=== PATIENT | male | born 1955 | race Caucasian/White ===

== ENCOUNTER 2016-11-30 13:52 | Outpatient (CLI) | payer OTHER ==
--- NOTE | 2016-11-30 15:21 | Diagnostic Imaging Report ---
[facility] [address] [facility].[address] [address] Report Submission Date: Nov 30, 2016 3:01:33 PM AUTO BODY REPAIRER Patient Study Name: DEE CLINTON Date: Nov 30, 2016 1:58:50 PM AUTO BODY REPAIRER Modality Type: CR Gender: M Description: CHEST : 57 Institution: [facility] Physician: JENNIFER DENG 2 views of the chest History: COUGH AND WHEEZING X 2 WEEKS Findings: Comparison: September 09, 2012 Cardiac size is upper limits of normal Again noted is hilar prominence No focal consolidation, pleural effusion or pneumothorax There is minimal peribronchial thickening Degenerative changes of the thoracic spine are present Impression: 1. No focal consolidation, pleural effusion or pneumothorax 2. Reactive airway disease 3. Hilar prominence is persistent which may be due to pulmonary congestion/ pulmonary arterial hypertension Electronically signed on Nov 30, 2016 3:01:33 PM AUTO BODY REPAIRER by: Geri LOW
== END 2016-11-30 13:53 ==
LOC: RAD 13:52
PROVIDERS: ATTEND Physician Assistant
DX: R06.2 Wheezing (principal); R05 Cough
CPT/HCPCS: 71020

== ENCOUNTER 2016-12-06 11:01 | Outpatient (CLI) | payer OTHER ==
[2016-12-06 11:36] LABS: BASOPHILS % 0.6 (0.0-1.5); EOSINOPHILS % 0.9 % (0.0-6.8); LYMPHOCYTES # 2.1 # k/uL (0.6-4.0); MEAN CORPUSCULAR HEMOGLOBIN 27.8 pg (28.0-34.0); MONOCYTES # 0.5 # k/uL (0.0-0.9); MONOCYTES % 6.1 % (0.0-11.0); NEUTROPHILS # 5.4 # k/uL (1.4-7.7)
[2016-12-06 11:57] LABS: eGFR (African) > 60; eGFR (Non-African) > 60
--- NOTE | 2016-12-06 15:17 | Diagnostic Imaging Report ---
MIKE MICHAELS [facility] [address] [facility] [address] [address] Report Submission Date: Dec 06, 2016 2:00:50 PM SYSTEMS PLANNER Patient Study Name: DEE CLINTON Date: Dec 06, 2016 11:09:37 AM SYSTEMS PLANNER Modality Type: CR Gender: M Description: CHEST : 57 Institution: [facility] Physician: MIKE MICHAELS Chest, 2 view History: COUGH, DIFFICULTY BREATHING, COPD, WHEEZING, TIGHTNESS, BRONCHITIS. FORMER SMOKER Findings: Comparison is made to examinations of 11/30/2016. The heart size is normal. The lungs are clear. There is no pleural effusion or pneumothorax identified. The osseous structures are normal. Impression: 1. No acute pulmonary disease. Electronically signed on Dec 06, 2016 2:00:50 PM SYSTEMS PLANNER by: Alexis LOW
== END 2016-12-06 11:02 ==
LOC: LAB 11:01
PROVIDERS: ATTEND Physician Assistant
DX: R06.02 Shortness of breath (principal)
CPT/HCPCS: 36415; 71020; 80053; 83880; 85025

== ENCOUNTER 2016-12-17 11:12 | Emergency (ER) | payer OTHER ==
[2016-12-17] MEDS ORDERED: methylPREDNISolone ACETATE 80 MG/ML VIAL IM PRN (12:26)
[2016-12-17] MEDS ORDERED: DEXAMETHASONE SOD PHOS 4 MG/ML VIAL IM ONE (12:27)
[2016-12-17] MEDS ORDERED: methylPREDNISolone ACETATE 80 MG/ML VIAL IM ONE (12:34)
[2016-12-17 13:28] VITALS: BP 132/75
--- NOTE | 2016-12-17 19:59 | ED Physician Documentation ---
Skin Rash - HISTORIAN Historian: patient - HPI Stated Complaint: Rash Chief Complaint: Skin Rash Additional Information: rash every time he uses nebulizer txs in hosp or outpt. as last 10 days or so Front/Back of Body, Lg ([place]): 1 - rash 2 - rash 3 - rash Onset: days ago (10) Timing: still present Duration: persistent since (occured) Location: generalized Quality: itchy Identified Cause?: Yes (ipratropium) Where: home Context: Medication Exposure: other (ipratropium) Context: Food Exposure: none Context: Other Exposure: other (none) Further Comments: no - ROS CONST: none CVS/RESP: none EYES/ENT: none GI/: none MS/SKIN/LYMPH: none NEURO/PSYCH: none - PAST HX Past History: diabetes Type 1, hypertension Other History: other (depression, hyperlipidemia, heart disease) Immunizations: referred to PCP Allergies/Adverse Reactions: Allergies Allergy/AdvReac Type Severity Reaction Status Date / Time cefprozil [From Cefzil] Allergy Unknown Verified 12/17/16 11:24 amoxicillin trihydrate Allergy Itchy Skin Verified 12/17/16 11:24 [From Augmentin] potassium clavulanate Allergy Itchy Skin Verified 12/17/16 11:24 [From Augmentin] Penicillins AdvReac Unknown Itchy Skin Verified 12/17/16 11:24 tetracycline [Tetracycline] AdvReac Unknown Itchy Skin Verified 12/17/16 11:24 - SOCIAL HX Smoking History: non-smoker Alcohol Use: none Drug Use: none - FAMILY HX Family History: none - VITAL SIGNS Vital Signs: Vital Signs Temp Pulse Resp BP Pulse Ox 97.1 F L 88 18 132/75 99 12/17/16 11:15 12/17/16 13:26 12/17/16 13:26 12/17/16 13:26 12/17/16 13:26 - REVIEWED ASSESSMENTS Nursing Assessment Reviewed: Yes Vitals Reviewed: Yes Progress - Results/Orders Results/Orders: no testing ordered - Progress Progress: pt. given depo medrol 80 mg and decadron 8 mg im in er Critical Care Note - Critical Care Note Total Time (mins): 0 ED Results Lab/Radiology - Lab Results Lab Results: no testing ordered - Radiology Radiology Impressions: no testing ordered - Orders Orders: ED Orders Category Date Time Status Dexamethasone Sod Phosphate [Decadron] Med 12/17/16 12:27 Discontinued 8 mg IM NOW ONE methylPREDNISolone ACETATE [Depo-Medrol] Med 12/17/16 12:34 Discontinued 80 mg IM .STK-MED ONE methylPREDNISolone ACETATE [Depo-Medrol] Med 12/17/16 12:26 Discontinued 80 mg IM NOW PRN Skin Rash Physical Exam - EXAM General Appearance: alert, mild distress Skin: warm,dry Location: generalized, trunk, chest, abdomen, back, extremities Character: asymmetric, patchy Symptoms: warmth Extremities: non-tender, nml ROM, no edema EENT: eyes nml inspection, lips nml, gums nml, pharynx nml Neck: trachea midline, no swelling, stiff neck Respiratory: no resp distress, chest non-tender, breath sounds normal. No: wheezes, rales, rhonchi CVS: reg. rate & rhythm, heart sounds nml Abdomen: non-tender, no organomegaly, nml bowel sounds, no distention Neuro/Psych: oriented x3, CN's nml as tested, motor nml, sensation nml, mood/ affect nml Discharge Clincal Impression: Urticaria Referrals: Alfredo Orosco PA [Primary Care Provider] - 2 Days Comments: discharged in stable condition with script for prednisone taper 80 mg to 0 mg over 8 days and jeniffer 180 mg p.o. daily Condition: Stable Disposition: 01 HOME, SELF-CARE Decision to Admit: NO Decision Time: 13:20
== END 2016-12-17 13:26 | disposition home or self-care (01) ==
LOC: ED 11:12
DX: L50.0 Allergic urticaria (principal)
CPT/HCPCS: J1040; J1100; 96372; 99283

== ENCOUNTER 2017-12-09 14:24 | Outpatient (CLI) | payer MEDICARE ==
--- NOTE | 2017-12-09 19:06 | Diagnostic Imaging Report ---
ARA AMOR [facility] [address] [facility] [address] [address] Report Submission Date: Dec 09, 2017 3:12:14 PM VISUAL MERCHANDISING ASSISTANT Patient Study Name: DEE CLINTON Date: Dec 09, 2017 2:30:41 PM VISUAL MERCHANDISING ASSISTANT Modality Type: DX Gender: M Description: UPPER EXTREMITY : 57 Institution: [facility] Physician: ARA AMOR Examination: Plain film right wrist History: RT WRIST, PAIN IN RT WRIST X2 DAYS, NO KNOWN INJURY (Hx) Comparison exams: None available Findings: 3 views the right wrist demonstrates mild osteopenia and degenerative spurring. No fracture. No dislocation. No soft tissue abnormality. Vascular calcifications. Impression: Mild degenerative changes. No acute osseous abnormality. Electronically signed on Dec 09, 2017 3:12:14 PM VISUAL MERCHANDISING ASSISTANT by: Rainer LOW
== END 2017-12-09 14:25 ==
LOC: RAD 14:24
PROVIDERS: ATTEND Family Medicine
DX: M25.531 Pain in right wrist (principal)
CPT/HCPCS: 73110

== ENCOUNTER 2018-03-14 15:11 | Outpatient (CLI) | payer MEDICARE ==
[2018-03-14 16:00] LABS: eGFR (African) > 60; eGFR (Non-African) > 60
== END 2018-03-14 15:12 ==
LOC: LAB 15:11
PROVIDERS: ATTEND Family Medicine
DX: R30.0 Dysuria (principal); R82.99 Other abnormal findings in urine
CPT/HCPCS: 36415; 80053; 87086

== ENCOUNTER 2018-10-23 11:39 | Outpatient (CLI) | payer MEDICARE ==
--- NOTE | 2018-10-23 13:16 | Diagnostic Imaging Report ---
SUSANNA VALDIVIA [facility] [address] [facility] [address] [address] Report Submission Date: Oct 23, 2018 12:43:06 PM INVASIVE CARDIOVASCULAR TECHNOLOGIST Patient Study Name: DEE CLINTON Date: Oct 23, 2018 11:38:37 AM INVASIVE CARDIOVASCULAR TECHNOLOGIST Modality Type: DX Gender: M Description: CHEST : 57 Institution: [facility] Physician: SUSANNA VALDIVIA Examination: PA and lateral chest. History: Evaluate lung [place]. COUGH X 1 MONTH (Hx) Comparison exam: None provided. Findings: PA and lateral views of the chest demonstrates a normal cardiac and mediastinal silhouette. Chronic interstitial changes. No focal infiltrate. No blunting of the costophrenic margins. Osseous structures are appropriate for age. Impression: Chronic interstitial changes. No acute pulmonary process. Electronically signed on Oct 23, 2018 12:43:06 PM INVASIVE CARDIOVASCULAR TECHNOLOGIST by: Rainer LOW
== END 2018-10-23 12:00 ==
LOC: RAD 11:39
PROVIDERS: ATTEND Family Medicine
DX: R05 Cough (principal)
CPT/HCPCS: 71046

== ENCOUNTER 2019-01-25 08:48 | Outpatient (CLI) | payer MEDICARE ==
[2019-01-25 09:50] LABS: eGFR (Non-African) > 60
[2019-01-25 10:20] LABS: MEAN CORPUSCULAR HEMOGLOBIN 28.1 pg (28.0-34.0)
[2019-01-25 10:21] LABS: BASOPHILS % 2 % (0-2); EOSINOPHILS % 3 % (0-7); MONOCYTES % 8 % (0-11); SEGMENTED NEUTROPHILS % 64 % (39-79)
--- NOTE | 2019-01-25 11:47 | Diagnostic Imaging Report ---
SUSANNA VALDIVIA [facility] [address] [facility].[address] [address] Report Submission Date: Jan 25, 2019 10:01:22 AM CDT Patient Study Name: DEE CLINTON Date: Jan 25, 2019 9:06:40 AM CDT Modality Type: US Gender: M Description: US EXTREMITY VEINS BILAT : 57 Institution: [facility] Physician: SUSANNA VALDIVIA Examination: Ultrasound vein bilaterally History: SWELLING IN LEGS Findings: Sonographic evaluation of the lower extremity venous system from the groin to the popliteal fossa inclusive bilaterally. Normal compressibility. No luminal filling defect. Normal waveforms and response to augmentation. No popliteal region fluid collection. Impression: No evidence for deep venous thrombosis. Electronically signed on Jan 25, 2019 10:01:22 AM CDT by: Rainer LOW
== END 2019-01-25 08:50 ==
LOC: RAD 08:48
PROVIDERS: ATTEND Family Medicine
DX: R60.0 Localized edema (principal)
CPT/HCPCS: 36415; 80053; 84443; 85025; 93970

== ENCOUNTER 2019-06-20 09:20 | Outpatient (CLI) | payer MEDICARE ==
[2019-06-20 13:49] LABS: APPEARANCE,URINE CLEAR (CLEAR); COLOR,URINE YELLOW (YELLOW)
[2019-06-20 13:50] LABS: OCCULT BLOOD,URINE TR (NEGATIVE); PH URINE 5.5 (5.0 - 8.0); UROBILINOGEN URINE 0.2 Eu (0.2-1.0)
== END 2019-06-20 09:23 ==
LOC: LAB 09:20
PROVIDERS: ATTEND Family Medicine
DX: M54.5 Low back pain (principal)
CPT/HCPCS: 81002

== ENCOUNTER 2019-07-11 11:08 | Outpatient (CLI) | payer MEDICARE ==
[2019-07-23 12:46] LABS: BASOPHILS % 0.6 % (0.0-1.5); NEUTROPHILS # 6.1 # k/uL (1.4-7.7); eGFR (Non-African) > 60
--- NOTE | 2019-07-24 13:10 | Diagnostic Imaging Report ---
SUSANNA VALDIVIA [facility] [address] [facility] [address] [place], [place]. [address] Report Submission Date: Jul 11, 2019 12:58:54 PM CDT Patient Study Name: DEE CLINTON Date: Jul 11, 2019 11:25:46 AM CDT Modality Type: CT\SR Gender: M Description: CT A/P W/O RENAL : 57 Institution: [facility] Physician: SUSANNA VALDIVIA CT abdomen noncontrast CT pelvis noncontrast Date of exam: 07/11/19 Indication:CT A/P W/O RENAL PROTOCOL, RT FLANK PAIN X1-2 MONTHS, WORSENING (Hx) / RT FLANK PAIN Note time : 07/11/2019 12:21:46 PM User : Zoie Nguyen CT A/P W/O RENAL PROTOCOL, RT FLANK PAIN X1-2 MONTHS, WORSENING (DICOM Hx) (DICOM Hx) Technique: 5 mm axial images through the abdomen and pelvis noncontrast Comparison:none Findings: CT Abdomen: The lung bases are clear. The unenhanced liver, spleen, gallbladder, pancreas, adrenal glands, and kidney are unremarkable. No renal calculi or obstructive uropathy is demonstrated. No ureteral calculi are present. There is a 1.1 cm presumed exophytic cyst cluster middle of a pole left kidney. There is no bowel obstruction, free air, or free fluid. Vascular calcifications are present. CT Pelvis: The urinary bladder is partially distended. Urinary bladder wall thickening measures up to 7.2 mm. This could represent cystitis. No free fluid is demonstrated. The osseous structures are unremarkable. There is a midline ventral umbilical hernia containing fat. Diverticulosis of the distal colon is present. Impression: No renal calculi or obstructive uropathy Mild urinary bladder wall thickening may represent cystitis Midline ventral umbilical hernia containing fat Diverticulosis Electronically signed on Jul 11, 2019 12:58:54 PM CDT by: Panfilo LOW
== END 2019-07-11 11:30 ==
LOC: LAB 11:08
PROVIDERS: ATTEND Family Medicine
DX: R10.9 Unspecified abdominal pain (principal)
CPT/HCPCS: 36415; 74176; 80053; 85025